=== PATIENT | female | born 1995 | race Caucasian/White ===

== ENCOUNTER 2023-01-31 15:46 | Day surgery (SDC) | payer OTHER ==
[~2023-01-31 15:46] MED LIST: FERRIC CARBOXYMALTOSE 750 MG in SODIUM CHLORIDE 250 ML IVPB ONE
[2023-01-31 17:51] VITALS: BP 145/84; PULSE 86; RESP 20; TEMP 98.3
== END 2023-01-31 17:30 | disposition home or self-care (01) ==
LOC: JONCNONCHE 15:46
PROVIDERS: ATTEND Internal Medicine Hematology & Oncology
PROC: 3E033GC Introduction of Other Therapeutic Substance into Peripheral Vein, Percutaneous Approach (ICD-10-PCS; principal; 2023-01-31)
DX: D50.9 Iron deficiency anemia, unspecified (principal)
CPT/HCPCS: 96365; J1439

== ENCOUNTER 2023-02-07 15:55 | Day surgery (SDC) | payer OTHER ==
[2023-02-07 17:54] VITALS: BP 138/86; PULSE 82; RESP 20; TEMP 97.8
== END 2023-02-07 17:54 | disposition home or self-care (01) ==
LOC: JONCNONCHE 15:55
PROVIDERS: ATTEND Internal Medicine Hematology & Oncology
PROC: 3E033GC Introduction of Other Therapeutic Substance into Peripheral Vein, Percutaneous Approach (ICD-10-PCS; principal; 2023-02-07)
DX: D50.9 Iron deficiency anemia, unspecified (principal)
CPT/HCPCS: 96365; J1439